=== PATIENT | male | born 1950 | race Caucasian/White ===

== ENCOUNTER 2024-07-29 08:28 | Day surgery (SDC) | payer OTHER ==
[2024-07-29] VITALS (9 sets, daily range): BP systolic 131–152; BP diastolic 69–87
[~2024-07-29] VITALS: Ht 180.3 cm; Wt 101.2 kg
[~2024-07-29 08:28] MED LIST: ASPIR 8181 M1 PO; ATOR40TA PO; Aspir-Low81 MG PO; B12-FOLIC ACID1 EACH PO; CLOP75 PO; CRUTCH2 USE; LOSA25 PO; METO50ER PO; NICO14TP TOP; NITR.4SL SL; Norco 7.5-3251 EACH PO; OXYACE5T PO; XARELTO20 MG PO
[2024-07-29] MEDS ORDERED: FentaNYL Citrate 50 MCG/ML 2 ML Injection ONE ×2 (09:18→09:49)
[2024-07-29] MEDS ORDERED: Midazolam HCl 1MG / ML 2ML Vial ONE ×2 (09:18→09:50)
--- NOTE | 2024-07-29 11:03 | NUR ---
pt to recovery from lab. pt a&o. bilat groin sites soft and non-tender per pt. no bleeding noted.
--- NOTE | 2024-07-29 11:29 | NUR ---
NO BLEEDING NOTED AT EITHER SITE.
--- NOTE | 2024-07-29 11:29 | NUR ---
PT READJUSTED IN BED. BILAT GROIN SITES SOFT AND NON-TENDER PER PT.
--- NOTE | 2024-07-29 11:34 | NUR ---
DR DOMINGUEZ AT BEDSIDE
--- NOTE | 2024-07-29 12:00 | NUR ---
PATIENT SAT UP 30 DEGREES. BILATERAL GROIN SITES C/D/I SOFT/NONTENDER, NO EVIDENCE OF BLEEDING. PATIENT FOUND RELIEF IN CHRONIC PAIN WITH POSITION CHANGE. VSS ON RA.
--- NOTE | 2024-07-29 12:18 | NUR ---
HOB ELEVATED 60 DEGREES. PATIENT TOLERATING PO INTAKE WELL. BILATERAL GROIN SITES C/D/I SOFT/NONTENDER, NO EVIDENCE OF BLEEDING. VSS ON RA.
--- NOTE | 2024-07-29 12:33 | NUR ---
bilat groin sites soft and non-tender per pt. no bleeding noted.
[2024-07-29] MEDS ORDERED: Heparin Sodium 1000 Units/ML 10ML MDV ONE (12:37)
[2024-07-29] MEDS ORDERED: NS 1,000 ML IV ONE ×2 (12:37→12:43)
--- NOTE | 2024-07-29 13:07 | NUR ---
pt given dc instructions and verbalized understanding. iv out. pt chnaged. gorin sites both soft and non-tender per pt. no bleeding noted. pt taken to parking lot. to drive pt home.
== END 2024-07-29 13:00 | disposition home or self-care (01) ==
LOC: MHTC 08:28
DX: I73.9 Peripheral vascular disease, unspecified (principal); I48.91 Unspecified atrial fibrillation; I10 Essential (primary) hypertension; I25.10 Atherosclerotic heart disease of native coronary artery without angina pectoris; E78.5 Hyperlipidemia, unspecified; F17.210 Nicotine dependence, cigarettes, uncomplicated; Z79.01 Long term (current) use of anticoagulants; Z79.899 Other long term (current) drug therapy
CPT/HCPCS: 36140; 36200; 37252; 75625; 75716; 76937; 85347; 99152; 99153; C1725; C1753; C1760; C1769; C1887; C9764; J1644; J2250; J3010; J7030; Q9967